=== PATIENT | male | born 1965 | race Caucasian/White ===

== ENCOUNTER 2020-01-07 06:37 | Emergency (ER) | payer BC ==
[2020-01-07 07:26] LABS: Absolute Lymphocytes (CBC) 2.3 K/uL (0.7-4.9); Basophils % 1.2 % (0-1.3); Hematocrit 41.9 % (39.6-49.0); Lymphocytes % 23.6 % (15.3-44.8); MPV 8.7 fL (7.6-11.3); RBC Red Blood Cell Count 4.41 M/uL (4.33-5.43)
[2020-01-07 07:33] LABS: Protime INR 0.89
[2020-01-07] MEDS ORDERED: FAMOTIDINE 20 MG/2 ML VIAL IV ONE (07:44)
[2020-01-07] MEDS ORDERED: LIDOCAINE VISCOUS 2% SOLN 15 ML UDC ONE (07:44)
[2020-01-07] MEDS ORDERED: MAGNES/ALUMIN/SIMET 30ML UCUP ONE (07:44)
[2020-01-07 07:54] LABS: ALT/SGPT 30 U/L (12-78); AST/SGOT 37 U/L (15-37); Albumin 3.7 g/dL (3.4-5.0); Alkaline Phosphatase 83 U/L (45-117); BUN Blood Urea Nitrogen 18 mg/dL (7-18); Bicarbonate 29 mmol/L (21-32); Bilirubin Direct < 0.1 mg/dL (0-0.2); Bilirubin Total 0.3 mg/dL (0.2-1.0); Glucose Level 101 mg/dL (74-106); NT PRO-BNP 22 pg/mL (<125); Potassium 4.8 mmol/L (3.5-5.1); Protein, Total 7.3 g/dL (6.4-8.2); Sodium Level 139 mmol/L (136-145); Troponin (Emerg Dept Use Only) < 0.02 ng/mL (0.0-0.045)
--- NOTE | 2020-01-07 08:11 | RAD REPORT ---
EXAM DESCRIPTION: [place] Single View01/07/2020 8:05 am CLINICAL HISTORY: Chest pain COMPARISON: 2017 FINDINGS: The lungs appear clear of acute infiltrate. The heart is normal size IMPRESSION: No acute abnormalities displayed
--- NOTE | 2020-01-07 11:00 | ER ---
Nurse's Notes [facility] Name: Vivek Haywood Age: 54 yrs Sex: Male : 1965 Arrival Date: 01/07/2020 Time: 06:38 Bed 6 Private MD: Diagnosis: Other chest pain Presentation: 01/06 06:50 Chief complaint: Patient states: Marielos been having some high blood pressure readings at the house, and I thought I better get them looked at. No other symptoms reported for triage at this time. Coronavirus screen: Client denies travel out of the [place] in the last 14 days. At this time, the client does not indicate any symptoms associated with coronavirus-19. Ebola Screen: Patient negative for fever greater than or equal to 101.5 degrees Fahrenheit, and additional compatible Ebola Virus Disease symptoms Patient denies exposure to infectious person. Patient denies travel to an Ebola-affected area in the 21 days before illness onset. No symptoms or risks identified at this time. Initial Sepsis Screen: Does the patient meet any 2 criteria? No. Patient's initial sepsis screen is negative. Does the patient have a suspected source of infection? No. Patient's initial sepsis screen is negative. Risk Assessment: Do you want to hurt yourself or someone else? Patient reports no desire to harm self or others. Onset of symptoms was January 07, 2020. Care prior to arrival: None. Transition of care: patient was not received from another setting of care. 06:50 Acuity: DRU 3 sg 06:50 Method Of Arrival: Ambulatory sg Triage Assessment: 06:51 General: Appears in no apparent distress. well groomed, well developed, well nourished, sg Behavior is calm, cooperative, appropriate for age. Pain: Denies pain. EENT: No signs and/or symptoms were reported regarding the EENT system. Neuro: Level of Consciousness is awake, alert, obeys commands, Oriented to person, place, time, situation, Moves all extremities. Gait is steady, Speech is normal, Facial symmetry appears normal. Respiratory: Airway is patent Respiratory effort is even, unlabored, Respiratory pattern is regular, symmetrical, Denies cough, shortness of breath labored breathing, pain with respiration, pain with cough, pain with movement, air hunger. GI: No signs and/or symptoms were reported involving the gastrointestinal system. Derm: Skin is pink, warm \T\ dry. Musculoskeletal: Circulation, motion, and sensation intact. Range of motion: intact in all extremities. Historical: - Allergies: 06:50 No Known Allergies; sg - Home Meds: 06:50 lisinopril Oral [Active]; atorvastatin Oral [Active]; rr5 - PMHx: 06:50 CAD; heart cath; Hyperlipidemia; Hypertension; Myocardial infarction; sg - PSHx: 06:50 Angioplasty; sg - Immunization history:: Adult Immunizations up to date. - Social history:: Smoking status: Patient denies any tobacco usage or history of. Screenin:00 Abuse screen: Denies threats or abuse. Denies injuries from another. Nutritional rr5 screening: No deficits noted. Tuberculosis screening: No symptoms or risk factors identified. Assessment: 07:00 General: Appears in no apparent distress. comfortable, Behavior is calm, cooperative, bp appropriate for age, RECD REPORT FROM BINU BHATIA. 54YO WM P/W CP AND REFLUX. MD AT B/S FOR EVAL. Pain: Complains of pain in mid-sternal area. Neuro: No deficits noted. Cardiovascular: Rhythm is sinus rhythm. Respiratory: No deficits noted. GI: No signs and/or symptoms were reported involving the gastrointestinal system. : No signs and/or symptoms were reported regarding the genitourinary system. EENT: No deficits noted. Derm: No deficits noted. Musculoskeletal: No deficits noted. 07:59 Reassessment: Patient appears in no apparent distress at this time. Patient and/or bp family updated on plan of care and expected duration. Pain level reassessed. Patient is alert, oriented x 3, equal unlabored respirations, skin warm/dry/pink. ALL CURRENT ORDERS COMPLETED. 09:00 Reassessment: ALL CURRENT ORDERS COMPLETED, RESULTS PENDING. bp 09:30 Reassessment: Patient appears in no apparent distress at this time. Patient and/or bp family updated on plan of care and expected duration. Pain level reassessed. Patient is alert, oriented x 3, equal unlabored respirations, skin warm/dry/pink. SECOND TROPONIN DRAWN AND SENT Patient states feeling better. Patient states symptoms have improved. 11:00 Reassessment: Dr. Durbin at bedside discussing POC to d/c home. aa5 11:18 Reassessment: Patient is alert, oriented x 3, equal unlabored respirations, skin aa5 warm/dry/pink. Patient states feeling better. Vital Signs: 06:50 BP 167 / 85; Pulse 83; Resp 19; Temp 98.5; Pulse Ox 99% ; Weight 74.84 kg; Height 5 ft. rr5 8 in. (172.72 cm); Pain 1/10; 07:30 BP 140 / 91; Pulse 66; Resp 17; Pulse Ox 100% ; bp 08:00 BP 140 / 92; Pulse 66; Resp 17; Pulse Ox 100% ; bp 09:00 BP 142 / 90; Pulse 73; Resp 20; Pulse Ox 98% ; bp 10:38 BP 129 / 82; Pulse 61; Resp 12; Pulse Ox 100% on R/A; mh5 06:50 Body Mass Index 25.09 (74.84 kg, 172.72 cm) rr5 ED Course: 06:38 Patient arrived in ED. cl3 06:50 Arm band placed on. sg 06:51 Triage completed. sg 07:03 Rufus Durbin MD is Attending Physician. kdr 07:18 Patient has correct armband on for positive identification. Bed in low position. Call bp light in reach. Side rails up X2. 07:18 Inserted saline lock: 20 gauge in right antecubital area, using aseptic technique. bp Blood collected. 07:21 Vikash Guzman, RN is Primary Nurse. bp 08:05 XRAY Chest (1 view) In Process Unspecified. EDMS 11:18 No provider procedures requiring assistance completed. IV discontinued, intact, aa5 bleeding controlled, No redness/swelling at site. Pressure dressing applied. Administered Medications: 07:22 Drug: Pepcid 20 mg Route: IVP; Site: right antecubital; bp 09:58 Follow up: Response: No adverse reaction bp 07:22 Drug: GI Cocktail without - (Maalox Suspension 30 ml, Lidocaine Liquid 2 % 15 bp ml) Route: PO; 09:58 Follow up: Response: Marked relief of symptoms bp Outcome: 10:59 Discharge ordered by . kdr 11:18 Discharged to home ambulatory. aa5 11:18 Condition: stable 11:18 Discharge instructions given to patient, Instructed on discharge instructions, follow up and referral plans. Demonstrated understanding of instructions, follow-up care. 11:19 Patient left the ED. aa5 Signatures: Dispatcher [employer] Blake Warner, RN RN sg Rufus Durbin MD MD kdr Calderon, Audri, RN RN aa5 Kelli Cowan Brian, RN RN bp Roque, Raymond, RN RN rr5 Sil Baldwin cl3
--- NOTE | 2020-01-07 11:00 | EDPHYS ---
Physician Documentation [facility] Name: Vivek Haywood Age: 54 yrs Sex: Male : 1965 Arrival Date: 01/07/2020 Time: 06:38 Bed 6 Private MD: ED Physician Rufus Durbin HPI: 01/06 07:13 This 54 yrs old Male presents to ER via Ambulatory with complaints of High kdr Blood Pressure. 07:13 The patient or guardian reports chest pain that is located primarily in the substernal kdr area. Onset: gradually, 2 week(s) ago. The pain does not radiate. Associated signs and symptoms: Pertinent positives: Indigestion. The chest pain is described as burning. Duration: The patient or guardian reports multiple episodes, that are intermittent, that wax and wane, with no pattern. Modifying factors: The symptoms are alleviated by antacids, Partial. the symptoms are aggravated by nothing. Severity of pain: At its worst the pain was mild moderate just prior to arrival, in the emergency department the pain is unchanged. The patient has experienced similar episodes in the past, chronically. The patient has not recently seen a physician. Was concerned when he noted his BP to be 144/93 this morning. Feels like he has had constant indigestion for the past two weeks but this has been ongoing for some years. He quit smoking about two months ago and his father of a heart attack. The patient has had a prior heart attack and was seen here for that. Historical: - Allergies: 06:50 No Known Allergies; sg - Home Meds: 06:50 lisinopril Oral [Active]; atorvastatin Oral [Active]; rr5 - PMHx: 06:50 CAD; heart cath; Hyperlipidemia; Hypertension; Myocardial infarction; sg - PSHx: 06:50 Angioplasty; sg - Immunization history:: Adult Immunizations up to date. - Social history:: Smoking status: Patient denies any tobacco usage or history of. ROS: 07:16 Constitutional: Negative for fever, chills, and weight loss, Eyes: Negative for injury, kdr pain, redness, and discharge, ENT: Negative for injury, pain, and discharge, Neck: Negative for injury, pain, and swelling, Respiratory: Negative for shortness of breath, cough, wheezing, and pleuritic chest pain, Abdomen/GI: Negative for abdominal pain, nausea, vomiting, diarrhea, and constipation, Back: Negative for injury and pain, : Negative for injury, bleeding, discharge, and swelling, MS/Extremity: Negative for injury and deformity, Skin: Negative for injury, rash, and discoloration, Neuro: Negative for headache, weakness, numbness, tingling, and seizure activity. Psych: Negative for depression, anxiety, suicide ideation, homicidal ideation, and hallucinations, Allergy/Immunology: Negative for hives, rash, and allergies, Endocrine: Negative for neck swelling, polydipsia, polyuria, polyphagia, and marked weight changes, Hematologic/Lymphatic: Negative for swollen nodes, abnormal bleeding, and unusual bruising. 07:16 Cardiovascular: Positive for chest pain, of the mid-sternal area. 07:16 Respiratory: Positive for Exam: 07:16 Constitutional: This is a well developed, well nourished patient who is awake, alert, kdr and in no acute distress. Head/Face: Normocephalic, atraumatic. Eyes: Pupils equal round and reactive to light, extra-ocular motions intact. Lids and lashes normal. Conjunctiva and sclera are non-icteric and not injected. Cornea within normal limits. Periorbital areas with no swelling, redness, or edema. Neck: Trachea midline, no thyromegaly or masses palpated, and no cervical lymphadenopathy. Supple, full range of motion without nuchal rigidity, or vertebral point tenderness. No Meningismus. Chest/axilla: Normal chest wall appearance and motion. Nontender with no deformity. No lesions are appreciated. Cardiovascular: Regular rate and rhythm with a normal S1 and S2. No gallops, murmurs, or rubs. Normal PMI, no JVD. No pulse deficits. Respiratory: Lungs have equal breath sounds bilaterally, clear to auscultation and percussion. No rales, rhonchi or wheezes noted. No increased work of breathing, no retractions or nasal flaring. Abdomen/GI: Soft, non-tender, with normal bowel sounds. No distension or tympany. No guarding or rebound. No evidence of tenderness throughout. Back: No spinal tenderness. No costovertebral tenderness. Full range of motion. Skin: Warm, dry with normal turgor. Normal color with no rashes, no lesions, and no evidence of cellulitis. MS/ Extremity: Pulses equal, no cyanosis. Neurovascular intact. Full, normal range of motion. Neuro: Awake and alert, GCS 15, oriented to person, place, time, and situation. Cranial nerves II-XII grossly intact. Motor strength 5/5 in all extremities. Sensory grossly intact. Cerebellar exam normal. Normal gait. Psych: Awake, alert, with orientation to person, place and time. Behavior, mood, and affect are within normal limits. 07:26 ECG was reviewed by the Attending Physician. kdr Vital Signs: 06:50 BP 167 / 85; Pulse 83; Resp 19; Temp 98.5; Pulse Ox 99% ; Weight 74.84 kg; Height 5 ft. rr5 8 in. (172.72 cm); Pain 1/10; 07:30 BP 140 / 91; Pulse 66; Resp 17; Pulse Ox 100% ; bp 08:00 BP 140 / 92; Pulse 66; Resp 17; Pulse Ox 100% ; bp 09:00 BP 142 / 90; Pulse 73; Resp 20; Pulse Ox 98% ; bp 10:38 BP 129 / 82; Pulse 61; Resp 12; Pulse Ox 100% on R/A; mh5 06:50 Body Mass Index 25.09 (74.84 kg, 172.72 cm) rr5 MDM: 07:16 Data reviewed: vital signs, nurses notes, lab test result(s), EKG, radiologic studies. kdr Counseling: I had a detailed discussion with the patient and/or guardian regarding: the historical points, exam findings, and any diagnostic results supporting the discharge/admit diagnosis, lab results, radiology results. 10:59 Patient medically screened. kdr 01/06 07:12 Order name: Basic Metabolic Panel; Complete Time: 08:30 kdr 01/06 07:12 Order name: CBC with Diff; Complete Time: 08:30 kdr 01/06 07:12 Order name: LFT's; Complete Time: 08:30 kdr 01/06 07:12 Order name: Magnesium; Complete Time: 08:30 kdr 01/06 07:12 Order name: NT PRO-BNP; Complete Time: 08:30 kdr 01/06 07:12 Order name: PT-INR; Complete Time: 08:30 kdr 01/06 07:12 Order name: Troponin (emerg Dept Use Only); Complete Time: 08:30 kdr 01/06 07:12 Order name: XRAY Chest (1 view); Complete Time: 08:30 kdr 01/06 07:12 Order name: EKG; Complete Time: 07:13 kdr 01/06 07:12 Order name: Cardiac monitoring; Complete Time: 07:21 kdr 01/06 07:12 Order name: EKG - Nurse/Tech; Complete Time: 07:22 kdr 01/06 08:33 Order name: Troponin (emerg Dept Use Only): Draw at 9:20; Complete Time: 10:54 kdr 01/06 07:12 Order name: IV Saline Lock; Complete Time: 07:21 kdr 01/06 07:12 Order name: Labs collected and sent; Complete Time: 07:21 kdr 01/06 07:12 Order name: O2 Per Protocol; Complete Time: 07:21 kdr 01/06 07:12 Order name: O2 Sat Monitoring; Complete Time: 07:21 kdr EC:26 Rate is 76 beats/min. Rhythm is regular, Normal Sinus Rhythm with No ectopy. QRS [place] kdr is Normal. MI interval is normal. QRS interval is normal. QT interval is normal. No Q waves. Clinical impression: Normal ECG. Administered Medications: 07:22 Drug: Pepcid 20 mg Route: IVP; Site: right antecubital; bp 09:58 Follow up: Response: No adverse reaction bp 07:22 Drug: GI Cocktail without - (Maalox Suspension 30 ml, Lidocaine Liquid 2 % 15 bp ml) Route: PO; 09:58 Follow up: Response: Marked relief of symptoms bp Disposition: 01/07/20 10:59 Discharged to Home. Impression: Other chest pain. - Condition is Stable. - Discharge Instructions: Nonspecific Chest Pain. - Medication Reconciliation Form, Thank You Letter, Work release form form. - Follow up: Private Physician; When: 2 - 3 days; Reason: If symptoms return, Further diagnostic work-up, Recheck today's complaints, Continuance of care, Re-evaluation by your physician. - Problem is new. - Symptoms have improved. Signatures: Dispatcher [employer] EDMS Blake Reeves RN RN sg Rittger, Kevin, MD MD [facility] Mary Lou Davis RN RN aa5 Vikash Guzman RN RN bp Amanuel Duarte RN RN rr5 Corrections: (The following items were deleted from the chart) 11:19 10:59 01/07/2020 10:59 Discharged to Home. Impression: Other chest pain. Condition is aa5 Stable. Forms are Medication Reconciliation Form, Thank You Letter, Antibiotic Education, Prescription Opioid Use. Follow up: Private Physician; When: 2 - 3 days; Reason: If symptoms return, Further diagnostic work-up, Recheck today's complaints, Continuance of care, Re-evaluation by your physician. Problem is new. Symptoms have improved. kdr
[2020-01-07 11:28] VITALS: TEMP 98.5
[2020-01-07 11:49] VITALS: BP 129/82; O2SAT 100
== END 2020-01-07 11:19 | disposition home or self-care (01) ==
LOC: ER 06:37
DX: R07.89 Other chest pain (principal); I10 Essential (primary) hypertension; I25.2 Old myocardial infarction; I25.10 Atherosclerotic heart disease of native coronary artery without angina pectoris; E78.5 Hyperlipidemia, unspecified
CPT/HCPCS: 36415; 71045; 80048; 80076; 83735; 83880; 84484; 85025; 85610; 93005; 96374; 99284

== ENCOUNTER 2020-07-28 10:56 | Day surgery (SDC) | payer BC ==
[2020-07-27 11:51] LABS: Basophils % 1.5 % (0-1.3); Hematocrit 41.7 % (39.6-49.0); MPV 8.8 fL (7.6-11.3); RBC Red Blood Cell Count 4.47 M/uL (4.33-5.43)
--- NOTE | 2020-07-27 11:57 | EKG ---
Test Date: 2020-07-27 Test Time: 10:32:34 Supervisor Ride Assembly: MAKENNA MEASUREMENT RESULTS: Intervals: Rate: 53 TN: 164 QRSD: 84 QT: 410 QTc: 384 Terrell: P: 63 TN: 164 QRS: 98 T: 69 INTERPRETIVE STATEMENTS: Sinus bradycardia Rightward axis Borderline ECG Compared to ECG 01/07/2020 07:17:21 Right-axis deviation now present Sinus rhythm no longer present Electronically Signed On 07-27-20 11:56:45 CDT by Kailash Tidwell
[2020-07-27 11:59] LABS: Protime INR 1.01
[2020-07-27 12:04] LABS: Potassium 4.4 mmol/L (3.5-5.1)
[2020-07-27 12:59] LABS: Blood Morphology Comment NOT SEEN (NOT SEEN); Platelet Estimate ADEQ; White Blood Cell Scan OK (OK)
--- NOTE | 2020-07-27 13:08 | RAD REPORT ---
EXAM DESCRIPTION: RAD - Chest Pa And Lat (2 Views) - 07/27/2020 11:32 am CLINICAL HISTORY: preop Chest pain. COMPARISON: Chest Single View dated 01/07/2020; Chest Single View dated 03/31/2017; Chest Single View dated 07/16/2015; CHEST SINGLE VIEW dated 03/25/2012 FINDINGS: The lungs are clear. The heart is upper limit of normal in size. No displaced fractures.
[2020-07-28 11:44] VITALS: TEMP 96.9
[2020-07-28] MEDS ORDERED: HEPA 1000U/500MLS 2,000 UNIT/1,000 ML BAG IV ONE (11:51)
[2020-07-28] MEDS ORDERED: LIDOCAINE 1% 20 ML MDV ONE (11:52)
[2020-07-28] MEDS ORDERED: NA CHLORIDE 0.9% 500 ML ONE (11:56)
[2020-07-28] MEDS ORDERED: MIDAZOLAM HCL 2 MG/2 ML INJ ONE (12:04)
[2020-07-28] MEDS ORDERED: FENTANYL CITR 100 MCG/2 ML ONE (12:04)
[2020-07-28] MEDS ORDERED: HEPARIN 5000 UNIT/ML 1 ML VIAL ONE (12:04)
[2020-07-28] MEDS ORDERED: HEPARIN 10,000 UNIT/10 ML VIAL IV ONE (12:05)
[2020-07-28] MEDS ORDERED: VERAPAMIL HCL 10 MG/4 ML VIAL IV ONE (12:05)
[2020-07-28] MEDS ORDERED: ATROPINE SULF 1 MG/10 ML SYR IV ONE (12:05)
[2020-07-28 13:54] VITALS: O2SAT 100
--- NOTE | 2020-07-28 14:11 | OP ---
Date of Procedure: 07/28/2020 Surgeon: TRISHA FELICIANO Procedure Performed: Distal aortogram with selective bilateral peripheral angiogram. Indication: Claudication and findings of CT suggestive of peripheral vascular disease. Access: Right radial artery 6-Ecuadorean closed with TR band. Complications: None. Bleeding: Less than 10 mL. Description Of Procedure: After risks, benefits, and alternatives were explained, the patient agreed to procedure and signed informed consent. The patient was brought into the cardiac catheterization laboratory, prepped and draped in usual sterile fashion. Then, we accessed right radial artery using pediatric micropuncture kit and placed a 6-Ecuadorean Slender sheath. Then, we took a long multipurpose catheter into the distal aorta, performed distal aortogram and proximal inflow vessel angiogram and then selectively engaged the right common iliac and did selective right peripheral angiogram and then selectively engaged the left common iliac and did left peripheral angiogram selectively. Then, we r emoved the catheter and sheath and placed TR band with good hemostasis. Findings: 1.Patent distal aorta. 2.Bilateral iliac arteries, memk-rg-tpmzegds disease about 40% to 50% diffuse. 3.Right femoral is about 30%. 4.Right SFA has diffuse 10% to 20%. 5.The left femoral is free of disease, bilateral profunda free of disease. 6.The left SFA has diffuse 20% to 30%. 7.Bilateral rfofg-rbx-pjxo flow is patent all the way to the feet. Conclusion: [id number]-[id number] peripheral vascular disease. Plan: Medical management. /LANA Voice ID: [id number] Report ID: [id number]
[2020-07-28 14:25] VITALS: BP 112/67
== END 2020-07-28 14:48 | disposition home or self-care (01) ==
LOC: CCL 10:56
PROVIDERS: ATTEND Internal Medicine
DX: I70.213 Atherosclerosis of native arteries of extremities with intermittent claudication, bilateral legs (principal); I25.10 Atherosclerotic heart disease of native coronary artery without angina pectoris; I10 Essential (primary) hypertension; E78.5 Hyperlipidemia, unspecified; I25.2 Old myocardial infarction; F17.210 Nicotine dependence, cigarettes, uncomplicated; Z20.822 Contact with and (suspected) exposure to COVID-19; Z82.49 Family history of ischemic heart disease and other diseases of the circulatory system
CPT/HCPCS: 93005; 85025; 80048; 36415; 85610; 85730; 71046; 36245; 75716; U0003; C1893; J1644 ×2; J2250; J3010; J7040; 75710